=== PATIENT | female | born 1975 ===

== ENCOUNTER → 2019-01-09 | Outpatient (CLI) | payer SELFPAY ==
--- NOTE | 2019-01-09 16:35 | REP ---
Chest x-ray: Two views. History: Rule out TB . Comparison study: No comparison study . Findings: The lungs are well inflated and free of infiltrate. The pleural angles are sharp. The heart size is normal. Pulmonary vasculature is not increased. No significant bony abnormality is seen. Impression: Negative chest x-ray. Electronically Signed by Alex Vizcarra MD 01/09/2019 04:26 P
== END ==
LOC: EDBD 09:24 → M WUC 09:24
PROVIDERS: ATTEND Family Medicine Adult Medicine
DX: Z11.1 Encounter for screening for respiratory tuberculosis (principal)